=== PATIENT | female | born 1955 | race Caucasian/White ===

== ENCOUNTER 2022-05-11 13:56 | Emergency (ER) | payer BC, SELFPAY ==
[2022-05-11 14:12] VITALS: PULSE 62; RESP 14; TEMP 36.2; O2SAT 95; BMI 37.8
--- NOTE | 2022-05-11 14:55 | ED_ITS ---
HPI - Wound/Laceration General Chief Complaint: Laceration/Wound Stated Complaint: Thumb Lac Time Seen by Provider: 05/11/22 13:58 History of Present Illness HPI narrative: This 66-year-old female comes in with a laceration on the dorsal aspect of her right thumb overlying the PIP joint. She was putting an extra bag around a garbage bag when something sharp caused about a 1 cm laceration in this area. She comes in because the bleeding would not stop, however at the time of my visit there is no longer any active bleeding. She is on Xarelto. She does not report any other injury. She is unsure of her tetanus status but thinks that her last 1 was about 10 years ago. Related Data Home Medications Medication Instructions Recorded Confirmed glipizide 2.5 mg tablet, extended 2.5 mg PO DAILY 05/11/22 05/11/22 release 24 hr hydrochlorothiazide 25 mg tablet 25 mg PO DAILY 05/11/22 05/11/22 lisinopril 40 mg tablet 40 mg PO DAILY 05/11/22 05/11/22 lorazepam 0.5 mg tablet 0.5 mg PO Q6H PRN 05/11/22 05/11/22 rivaroxaban 20 mg tablet (Xarelto) 20 mg PO Q24H 05/11/22 05/11/22 rosuvastatin 40 mg tablet 40 mg PO DAILY 05/11/22 05/11/22 sertraline 100 mg tablet 100 mg PO DAILY 05/11/22 05/11/22 Allergies Allergy/AdvReac Type Severity Reaction Status Date / Time acetaminophen [From Percocet] Allergy Verified 05/11/22 14:20 oxycodone [From Percocet] Allergy Verified 05/11/22 14:20 Sulfa (Sulfonamide Allergy Verified 05/11/22 14:20 Antibiotics) Review of Systems Status of ROS: Reports: 10 or more systems reviewed and unremarkable except as noted in History and below Narrative: Constitutional: No fevers, no weight gain or loss. Eyes: No discharge. No vision changes. HENT: No congestion, no sore throat, no ear pain. Cardiovascular: No chest pain, no palpitations. Respiratory: No shortness of breath, no wheezes, no cough. Gastrointestinal: No abdominal pain, no vomiting, no diarrhea. Genitourinary: No dysuria, no hematuria. Musculoskeletal: Normal range of motion. Skin: No rashes, no pruritis. Neurological: No dizziness, weakness, sensory change, speech change. Endo/Heme/Allergies: No bruising or bleeding. No polydipsia. Pysch: no suicidality, no anxiety, no insomnia. All other systems reviewed and are negative. [facility] Medical History Anxiety Atrial fibrillation Carpal tunnel syndrome on both sides DM (diabetes mellitus), type 2 Hernia Hyperlipidemia Hypertension Surgical History H/O shoulder surgery History of delivery Social History Smoking Status: Never smoker How often do you have a drink containing alcohol: never AUDIT-C Alcohol total score: 0 Non-prescribed substance use: denies use Exam Narrative: Exam Narrative: Constitutional: Well-developed, well-nourished, no acute distress. HEENT: Normocephalic, atraumatic. Neck: Normal range of motion. Nontender. Supple. Heart: Intact distal pulses. Lungs: No chest discomfort. No wheezes, rhonchi, or rales. Abdomen: Nontender. Back: Normal range of motion. Extremities: Normal range of motion. 1 cm linear laceration over the dorsal aspect of the right thumb. Skin: Intact. No rash. Warm. No erythema or pallor. Neurologic: No altered sensation. No weakness. Alert and oriented. Psychiatric: No suicidality. No anxiety or depression. No insomnia. Nursing notes and vitals signs are reviewed. Const: Vital Signs, click to edit/add: Vital Signs - 24 hr 05/11/22 14:12 Temperature 97.2 F L Pulse Rate [Left P ulse Oximeter] 62 Respiratory Rate 14 Pulse Oximetry 95 Course Vital Signs Vital signs: Initial Vital Signs Temperature 97.2 F L 05/11/22 14:12 Temperature Source Temporal Artery Scan 05/11/22 14:12 Pulse Rate 62 05/11/22 14:12 Respiratory Rate 14 05/11/22 14:12 Pulse Oximetry 95 05/11/22 14:12 Oxygen Delivery Method 05/11/22 14:12 Vital Signs Temperature 97.2 F L 05/11/22 14:12 Pulse Rate 62 05/11/22 14:12 Respiratory Rate 14 05/11/22 14:12 Pulse Oximetry 95 05/11/22 14:12 Temperature 97.2 F L 05/11/22 14:12 Pulse Rate 62 05/11/22 14:12 Respiratory Rate 14 05/11/22 14:12 Pulse Oximetry 95 05/11/22 14:12 MDM - Wound/Laceration MDM Narrative Medical decision making narrative: This patient comes in with a small laceration that had some prolonged bleeding because of Xarelto therapy. The time of my assessment the bleeding has stopped. She has a flap-type wound in this area and the skin edges are nicely approximated. Dermabond was applied with excellent results. The patient did receive a tetanus vaccination. Instructions were given regarding wound care. Discharge Plan Discharge Clinical Impression: Laceration Patient Disposition: Home, Self-Care Condition: Stable Additional Instructions: Keep wound clean and dry. Follow up with primary physician as needed. Return if worsening. Prescriptions: No Action lorazepam 0.5 mg tablet 0.5 mg PO Q6H PRN (Reason: anxiety) 0RF Label Comments: TAKE 1 TABLET BY MOUTH EVERY 6 HOURS NEEDED FOR ANXIETY OR SLEEP glipizide 2.5 mg tablet extended release 24hr 2.5 mg PO DAILY 0RF hydrochlorothiazide 25 mg tablet 25 mg PO DAILY 0RF lisinopril 40 mg tablet 40 mg PO DAILY 0RF rosuvastatin 40 mg tablet 40 mg PO DAILY 0RF sertraline 100 mg tablet 100 mg PO DAILY 0RF Xarelto 20 mg tablet 20 mg PO Q24H 0RF Stand Alone Forms: [facility] Info Instructions
[2022-05-11] MEDS: TETANUS/DIPHTH/PERTUSSIS 0.5 ML SYRINGE IM (15:21)
== END 2022-05-11 15:23 | disposition home or self-care (01) ==
LOC: ED 15:06
PROVIDERS: Emergency Provider Emergency Medicine Emergency Medical Services; PCP Physician Assistant
DX: S61.011A Laceration without foreign body of right thumb without damage to nail, initial encounter (principal); W26.9XXA Contact with unspecified sharp object(s), initial encounter
CPT/HCPCS: 12001; 90471; 90715; 99282; 99283

== ENCOUNTER 2023-07-08 19:57 | Emergency (ER) | payer BC, SELFPAY ==
[2023-07-08] VITALS (9 sets, daily range): BP systolic 116–137; BP diastolic 48–59; PULSE 53–68; RESP 16; TEMP 36.8; O2SAT 95–98; BMI 37.8
--- NOTE | 2023-07-08 20:24 | ED_ITS ---
HPI - General Adult General Chief complaint: Arrhythmia/Palpitations Stated complaint: Uneven heartrate Time Seen by Provider: 07/08/23 20:22 History of Present Illness HPI narrative: Pt reports yesterday started feeling like her heart rate/ heart beat was very uneven. Reports also being SOB at times. States has an marga on her phone that showed her oxygen to be at 95%. Lightheaded a few times 67-year-old woman presenting to the emergency department with complaint of inte rmittently hard beats and feeling a little lightheaded or short of breath. She reports having some rapid heart rate at times but this is in the 80s for her normally she runs in the 50s due to flecainide. This has been occurring intermittently over the last couple of days. Does have a history of atrial fibrillation with remote ablation. Ultimately initiated on flecainide. She also describes a lot of stress in her life currently. She is having neck pain with some herniated discs. She has to do most of the work around her home as has what sounds like crippling arthritis. Grown son living there also with autism. Other stressors also described. No fever cough cold symptoms. Underlying history also of anxiety and later does endorse that lorazepam has been given to break a arrhythmias in the past. Related Data Home Medications Medication Instructions Recorded Confirmed glipizide 2.5 mg tablet, extended 2.5 mg PO DAILY 05/11/22 07/08/23 release 24 hr hydrochlorothiazide 25 mg tablet 25 mg PO DAILY 05/11/22 07/08/23 lisinopril 40 mg tablet 40 mg PO DAILY 05/11/22 07/08/23 lorazepam 0.5 mg tablet 0.5 mg PO Q6H PRN anxiety 05/11/22 07/08/23 rivaroxaban 20 mg tablet (Xarelto) 20 mg PO Q24H 05/11/22 07/08/23 rosuvastatin 40 mg tablet 40 mg PO DAILY 05/11/22 07/08/23 sertraline 100 mg tablet 100 mg PO DAILY 05/11/22 07/08/23 flecainide 50 mg tablet 50 mg PO BID 07/08/23 07/08/23 Allergies Allergy/AdvReac Type Severity Reaction Status Date / Time oxycodone [From Percocet] Allergy Verified 05/11/22 14:20 Sulfa (Sulfonamide Allergy Verified 05/11/22 14:20 Antibiotics) Review of Systems Status of ROS: Reports: 6 or more systems reviewed and unremarkable except as noted in History and below [facility] Medical History Carpal tunnel syndrome on both sides ?G56.03 - Carpal tunnel syndrome, bilateral upper limbs (ICD-10) Hernia ?K46.9 - Unspecified abdominal hernia without obstruction or gangrene (ICD- 10) Atrial fibrillation ?I48.91 - Unspecified atrial fibrillation (ICD-10) Anxiety ?F41.9 - Anxiety disorder, unspecified (ICD-10) Hypertension ?I10 - Essential (primary) hypertension (ICD-10) Hyperlipidemia ?E78.5 - Hyperlipidemia, unspecified (ICD-10) DM (diabetes mellitus), type 2 ?E11.9 - Type 2 diabetes mellitus without complications (ICD-10) Surgical History H/O shoulder surgery ?Z98.890 - Other specified postprocedural states (ICD-10) History of delivery ?Z98.891 - History of uterine scar from previous surgery (ICD-10) Social History Smoking Status: Never smoker Do you use any of these nicotine containing products: None Second hand tobacco smoke exposure: No How often do you have a drink containing alcohol: never AUDIT-C Alcohol total score: 0 Non-prescribed substance use: denies use service: No Exam Narrative: Exam Narrative: Very pleasant. Carefully groomed. Mildly anxious. Breathing easily. Lungs are clear. Heart in a regular rate and rhythm without murmur rub or gallop. Abdomen is overweight soft and nontender. Extremities are well perfused and without edema. Not able to reproduce any discomfort to palpation over the chest wall. Const: Vital Signs, click to edit/add: Vital Signs - 24 hr 07/08/23 20:06 07/08/23 20:24 07/08/23 20:30 Temperature 98.2 F Pulse Rate 53 L 54 L Pulse Rate [Pulse Oximeter] 65 Respiratory Rate 16 Blood Pressure Blood Pressure [Le ft Upper Arm] 137/59 L Pulse Oximetry 96 96 96 Oxygen Delivery Me thod Room Air 07/08/23 20:31 07/08/23 20:34 07/08/23 21:00 Temperature Pulse Rate 57 L 57 L Pulse Rate [Pulse Oximeter] Respiratory Rate Blood Pressure 117/57 L Blood Pressure [Le ft Upper Arm] Pulse Oximetry 96 98 95 Oxygen Delivery Me thod 07/08/23 21:02 07/08/23 21:30 07/08/23 21:32 Temperature Pulse Rate 58 L 68 63 Pulse Rate [Pulse Oximeter] Respiratory Rate Blood Pressure 116/48 L 119/53 L Blood Pressure [Le ft Upper Arm] Pulse Oximetry 96 97 98 [facility] has reviewed patient's vital signs: yes Course Vital Signs Vital signs: Initial Vital Signs Temperature 98.2 F 07/08/23 20:06 Temperature Source Temporal Artery Scan 07/08/23 20:06 Pulse Rate 65 07/08/23 20:06 Respiratory Rate 16 07/08/23 20:06 Blood Pressure 137/59 L 07/08/23 20:06 Blood Pressure Mean 85 07/08/23 20:06 Blood Pressure Position Semi-Fowlers 07/08/23 20:06 Pulse Oximetry 96 07/08/23 20:06 Oxygen Delivery Method Room Air 07/08/23 20:06 Vital Signs Temperature 98.2 F 07/08/23 20:06 Pulse Rate 65 07/08/23 20:06 Respiratory Rate 16 07/08/23 20:06 Blood Pressure 137/59 L 07/08/23 20:06 Pulse Oximetry 96 07/08/23 20:06 Oxygen Delivery Method Room Air 07/08/23 20:06 Temperature 98.2 F 07/08/23 20:06 Pulse Rate 63 07/08/23 21:32 Respiratory Rate 16 07/08/23 20:06 Blood Pressure 119/53 L 07/08/23 21:32 Pulse Oximetry 98 07/08/23 21:32 Oxygen Delivery Method Room Air 07/08/23 20:06 Medical Decision Making MDM Narrative Medical decision making narrative: Sounds like is experiencing potentially a dysrhythmia. Will monitor though for any runs of atrial fibrillation. Hydration also might help. Doubtful ischemic disease. Will check chemistries and TSH. Initiated IV of normal saline fluid bolus. Labs are reassuring. EKG reviewed by me shows a sinus, may be junctional rhythm at rate of 64. Looks to be quite regular no acute ischemic changes Seem to be improved but then was feeling some of these harder beats again. I a stayed with her to watch monitor. These beats that are causing her discomfort are clearly correlating with unifocal PVCs on monitor. Further was given a dose of lorazepam. Overall improved; lessened the sensation. These PVCs were appeared to be less frequent as well. Stress/anxiety may be contributing to perception. She does have some lorazepam available. Offered reassurance. See patient discharge Lab Data Lab results reviewed: Yes I reviewed the patient's lab results Labs: Lab Results 07/08/23 07/08/23 07/08/23 Range/Units 20:15 20:37 22:10 Sodium 136 (135-149) mmol/L Potassium 4.0 (3.6-5.1) mmol/L Chloride 99 (96-114) mmol/L Carbon Dioxide 28 (20-32) mmol/L Anion Gap 9 (7-15) mEq/L BUN 20 (7-30) mg/dL Creatinine 0.7 (0.5-1.5) mg/dL Estimated Creat Clear 42.32 Estimated GFR 96 ml/min Glucose 169 H (60-115) mg/dL Calcium 10.7 H (8.4-10.6) mg/dL Magnesium 1.9 (1.5-2.6) mg/dL TSH 2.070 (0.270-4.20) uIU/mL Lab Acknowledgement Test Added POC Troponin I 0.01 (0.01-0.04) ng/ml Discharge Plan Discharge Clinical Impression: Other social stressor, Frequent unifocal PVCs Patient Disposition: Home, Self-Care Condition: Improved Additional Instructions: Stay well-hydrated. Get quality and regular sleep. Can return for worsening lightheadedness or shortness of breath associated with these apparent premature ventricular contractions. I would check in with your cardiology clinic to see if they want to do anything else with your medications/treatment. Prescriptions: No Action flecainide 50 mg tablet 50 mg PO BID lorazepam 0.5 mg tablet 0.5 mg PO Q6H PRN (Reason: anxiety) Patient Comments: TAKE 1 TABLET BY MOUTH EVERY 6 HOURS NEEDED FOR ANXIETY OR SLEEP glipizide 2.5 mg tablet extended release 24hr 2.5 mg PO DAILY hydrochlorothiazide 25 mg tablet 25 mg PO DAILY lisinopril 40 mg tablet 40 mg PO DAILY rosuvastatin 40 mg tablet 40 mg PO DAILY sertraline 100 mg tablet 100 mg PO DAILY Xarelto 20 mg tablet 20 mg PO Q24H Follow Up/Referrals: Tamia Keenan PA [Referring] - Stand Alone Forms: [facility] Info Instructions
--- NOTE | 2023-07-08 20:27 | ED.NURSE ---
report given to Med. surg.
[2023-07-08 20:38] LABS: Troponin, Point-of-Care* 0.01 ng/ml (0.01-0.04)
[2023-07-08] MEDS: 0.9 % SODIUM CHLORIDE 1000 ml 1,000 ML IV (20:40)
[2023-07-08 21:04] LABS: Chloride* 99 mmol/L (96-114); Sodium* 136 mmol/L (135-149)
[2023-07-08 21:07] LABS: Anion Gap 9 mEq/L (7-15); Blood Urea Nitrogen* 20 mg/dL (7-30); Carbon Dioxide* 28 mmol/L (20-32); Creatinine* 0.7 mg/dL (0.5-1.5); Est. Creatinine Clearance* 42.32; Estimated Glomerular Filt Rate 96 ml/min; Glucose* 169 mg/dL (60-115)
[2023-07-08 21:08] LABS: Calcium* 10.7 mg/dL (8.4-10.6)
[2023-07-08] MEDS: LORazepam 2 MG/ML inj 0.5 MG IVP (21:43)
[2023-07-08 22:22] LABS: Magnesium* 1.9 mg/dL (1.5-2.6)
== END 2023-07-08 22:58 | disposition home or self-care (01) ==
PROVIDERS: Emergency Provider Family Medicine; PCP Family Medicine
DX: I49.3 Ventricular premature depolarization (principal); Z65.8 Other specified problems related to psychosocial circumstances
CPT/HCPCS: 36415; 80048; 83735; 84443; 84484; 93005; 94761; 96374; 99284; J2060; J7030